=== PATIENT | male | born 2005 | race Caucasian/White ===

== ENCOUNTER 2023-02-14 00:10 | Emergency (ER) | payer MEDICAID, OTHER ==
[~2023-02-14] VITALS: Ht 182 cm; Wt 90.7 kg
[2023-02-14 00:12] VITALS: BP 109/73
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
[2023-02-14] MEDS ORDERED: TETANUS,DIPTH,PERTUSS P/F (BOOSTRIX) 0.5 ML VIAL IM ONE (00:30)
[2023-02-14] MEDS ORDERED: RX-NAPROXEN (NAPROSYN) 250 MG TAB PPK#4 PO STA (00:51)
[2023-02-14] MEDS ORDERED: NAPR500T8 PO (00:57)
--- NOTE | 2023-02-14 06:53 | Diagnostic Imaging Report ---
TIBIA/FIBULA, LEFT, 2 VIEWS COMPARISON: Left knee radiographs performed concurrently. INDICATION: Left leg pain TECHNIQUE: Ap and lateral views of the tibia and fibula. FINDINGS: No fracture, focal osseous lesion or periosteal reaction. No radiopaque foreign body. Knee and ankle are normal in alignment. IMPRESSION: 1. No acute osseous abnormality. Dictated by: Dictated on workstation # [id number]
--- NOTE | 2023-02-14 06:57 | Diagnostic Imaging Report ---
KNEE, LEFT, 3 VIEWS COMPARISON: None available. INDICATION: Left knee pain TECHNIQUE: Non-weight bearing AP, oblique, and lateral views of the left knee. FINDINGS: No fracture or traumatic malalignment. The joint spaces are well maintained. Small knee joint effusion. No mineralized joint bodies. IMPRESSION: No acute fracture about the left knee. Dictated by: Dictated on workstation # [id number]
--- NOTE | 2023-02-14 07:03 | Diagnostic Imaging Report ---
FEMUR, LEFT, 2 VIEWS INDICATION: Left thigh pain COMPARISON: None available. TECHNIQUE: 2 views of left femur FINDINGS: No fracture or erosions within the left femur. No radiopaque foreign body or soft tissue gas. IMPRESSION: Negative left femur. Dictated by: Dictated on workstation # [id number]
== END 2023-02-14 01:13 | disposition home or self-care (01) ==
LOC: ER 00:12
DX: S80.02XA Contusion of left knee, initial encounter (principal); F17.210 Nicotine dependence, cigarettes, uncomplicated; F17.290 Nicotine dependence, other tobacco product, uncomplicated; Z23 Encounter for immunization; V18.4XXA Pedal cycle driver injured in noncollision transport accident in traffic accident, initial encounter; Y92.481 Parking lot as the place of occurrence of the external cause
CPT/HCPCS: 73552; 73562; 73590; 90715

== ENCOUNTER 2023-07-05 20:59 | Emergency (ER) | payer MEDICAID ==
[~2023-07-05] VITALS: Ht 183 cm; Wt 78.0 kg
[~2023-07-05 20:59] MED LIST: NAPR500T8 PO
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
--- NOTE | 2023-07-05 21:50 | Diagnostic Imaging Report ---
INDICATION: Headache and neck pain post injury, blurred vision TECHNIQUE: Multiple contiguous axial images were obtained through the brain and cervical spine without the use of intravenous contrast. Sagittal and coronal reformations through the cervical spine were then performed. Auto Exposure Controls were utilized during the CT exam to meet ALARA standards for radiation dose reduction. There is no previous study for comparison. CT head findings: There were no extra-axial fluid collections. No intracranial hemorrhage. No intracranial mass or mass effect. No midline shift. The ventricles are normal in size and position. There are no focal parenchymal abnormalities in the brain. Orbital contents appear unremarkable. Calvarial windows show no fracture. CT cervical spine findings: There is no evidence of cervical spine fracture. There is no subluxation or malalignment. IMPRESSION: Negative CT head. Negative CT cervical spine. Dictated by: Dictated on workstation # [id number]
--- NOTE | 2023-07-05 21:52 | Diagnostic Imaging Report ---
INDICATION: Injury to head and laceration to left eyebrow, blurred vision. TECHNIQUE: Multiple contiguous axial images were obtained through the facial bones without the use of intravenous contrast. Auto Exposure Controls were utilized during the CT exam to meet ALARA standards for radiation dose reduction. COMPARISON: There is no previous study for comparison. Orbital contents appear unremarkable. The sinuses are well-aerated throughout. There is no acute fracture. There are postoperative changes in the left side of the mandible. There are periodontal lucencies in the left mandibular teeth. There is no acute fracture. IMPRESSION: No acute abnormality. Postop changes in the left side of the mandible. Dictated by: Dictated on workstation # [id number]
[2023-07-05 22:10] LABS: CLARITY,URINE CLEAR; COLOR,URINE YELLOW
[2023-07-05 22:11] LABS: BACTERIA,URINE NEGATIVE /HPF; BILIRUBIN,URINE NEGATIVE (NEGATIVE); GLUCOSE, URINE (UA) NEGATIVE (NEGATIVE); KETONES,URINE NEGATIVE (NEGATIVE); LEUKOCYTE ESTERASE ,URINE NEGATIVE (NEGATIVE); NITRITE,URINE NEGATIVE (NEGATIVE); PROTEIN,URINE NEGATIVE (NEGATIVE)
[2023-07-05 22:19] VITALS: BP 126/69
[2023-07-05 22:20] LABS: AMPHETAMINE SCREEN, URINE POSITIVE (NEGATIVE); BARBITURATE SCREEN URINE NEGATIVE (NEGATIVE); CANNABINOID SCREEN, URINE NEGATIVE (NEGATIVE); COCAINE SCREEN URINE NEGATIVE (NEGATIVE); METHADONE STAT NEGATIVE (NEGATIVE); OPIATE SCREEN URINE NEGATIVE (NEGATIVE); OXYCODONE STAT NEGATIVE (NEGATIVE); PROPOXYPHENE STAT NEGATIVE (NEGATIVE); TRICYCLIC ANTIDEPRESSANTS SCRE NEGATIVE (NEGATIVE)
== END 2023-07-05 22:21 | disposition home or self-care (01) ==
LOC: EDUNIT# 20:59 → ER 21:02
DX: S09.90XA Unspecified injury of head, initial encounter (principal); S01.81XA Laceration without foreign body of other part of head, initial encounter; S01.112A Laceration without foreign body of left eyelid and periocular area, initial encounter; F15.90 Other stimulant use, unspecified, uncomplicated; F17.290 Nicotine dependence, other tobacco product, uncomplicated; F17.210 Nicotine dependence, cigarettes, uncomplicated; W22.8XXA Striking against or struck by other objects, initial encounter; Y93.01 Activity, walking, marching and hiking; Y92.512 Supermarket, store or market as the place of occurrence of the external cause
CPT/HCPCS: 70450; 70486; 72125; 80306; 81000

== ENCOUNTER 2023-08-01 11:30 | Emergency (ER) | payer MEDICAID ==
--- NOTE | 2023-08-01 11:50 | ED Cough/URI ---
General Chief Complaint: Cough/Cold/Flu Symptoms Stated Complaint: COUGH/FEVER/CONGESTION Source: patient Exam Limitations: no limitations History of Present Illness Date Seen by Provider: Aug 01, 2023 Time Seen by Provider: 11:49 Initial Comments Patient is a 18-year-old male who presents ED with flulike symptoms. Reports nasal congestion, cough and sore throat for the past 6 days. He does report a history of asthma. States he has some mild wheezing and shortness of breath. Does not have an inhaler at home. Reports diarrhea without vomiting. Denies of any known fever. Reports bodyaches chills and weakness. Has been taking cough medication without much improvement. No known exposure to COVID. Patient also wants to be checked for sexual transmitted infections. States his fiance tested positive for trichomonas today. Patient denies of any penile discharge, penile pain, penile lesions, scrotum pain, scrotum swelling, penile discharge, pain with urination, frequent urination. History of syphilis 6 years ago. Patient was treated. Allergies and Home Medications Allergies Coded Allergies: No Known Drug Allergies (Unverified , 02/14/23) Patient Home Medication List Home Medication List Reviewed: Yes Albuterol Sulfate (Ventolin Hfa) 1 Puff Puff, 2 PUFF INH Q4H Prescribed by: DEYA OROZCO on 08/01/23 1235 Metronidazole (Metronidazole) 500 Mg Tablet, 500 MG PO BID Prescribed by: DEYA OROZCO on 08/01/23 1210 Naproxen (Naproxen) 500 Mg Tablet.dr, 500 MG PO BID Prescribed by: KAREN HOFFMANN on 02/14/23 0057 Review of Systems Review of Systems Constitutional: chills; No diaphoresis, No fever; malaise, weakness EENTM: throat pain; No ear pain, No blurred vision, No double vision, No mouth pain, No mouth swelling Respiratory: cough, short of breath, wheezing Gastrointestinal: No abdominal pain; diarrhea; No nausea, No vomiting Genitourinary: No decreased output, No discharge, No dysuria, No frequency, No hematuria Musculoskeletal: No back pain, No joint pain Skin: No change in color, No change in hair/nails All Other Systems Reviewed Negative Unless Noted: Yes Past Bwjmsxg-Hdpvzq-Wohymk Hx Immunizations Up To Date Tetanus Booster (TDap): Unknown Past Medical History Surgeries: Yes (JAW FRACTURE) Respiratory: No Cardiac: No Neurological: No Genitourinary: No Gastrointestinal: No Musculoskeletal: No Endocrine: No HEENT: Yes (JAW FRACTURE ) Cancer: No Psychosocial: Yes (POLYSUBSTANCE ABUSE) Integumentary: No Blood Disorders: No Family Medical History SOCIAL HISTORY: -SMOKES AND VAPES NICOTINE AND HOOKAH -ETOH--OCCASIONAL USE -DRUGS--METHAMPHETAMINES/AMPHETAMINES, OPIATES, THC Physical Exam Vital Signs - First Documented 08/01/23 12:49 Temp 36.6 Pulse 98 Resp 18 B/P (MAP) 125/98 Pulse Ox 98 O2 Delivery Room Air Capillary Refill : Height: '" Weight: lbs. oz. kg; 23.00 BMI Method: General Appearance: WD/WN, no apparent distress Eyes: Bilateral Eye Normal Inspection, Bilateral Eye PERRL, Bilateral Eye EOMI HEENT: PERRL/EOMI, normal ENT inspection, TMs normal, pharynx normal Neck: non-tender, full range of motion, supple Respiratory: chest non-tender, lungs clear, normal breath sounds, no respiratory distress, no accessory muscle use Cardiovascular: regular rate, rhythm, no edema, no gallop, no JVD Gastrointestinal: normal bowel sounds, non tender, soft, no organomegaly Extremities: normal range of motion, non-tender, normal inspection, no pedal edema 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, no motor/sensory deficits, alert, normal mood/affect, oriented x 3 Skin: normal color, warm/dry Progress/Results/Core Measures Suspected Sepsis SIRS Temperature: Pulse: Respiratory Rate: Blood Pressure / Mean: Results/Orders Lab Results Laboratory Tests Test 08/01/23 11:35 08/01/23 12:01 08/01/23 12:07 Range/Units Influenza Type A (RT-PCR) Not Detected Not Detecte Influenza Type B (RT-PCR) Not Detected Not Detecte SARS-CoV-2 RNA (RT-PCR) Not Detected Not Detecte Urine Color YELLOW Urine Clarity CLEAR Urine pH 8.5 5-9 Urine Specific [place] 1.015 L 1.016-1.022 Urine Protein NEGATIVE NEGATIVE Urine Glucose (UA) TRACE H NEGATIVE Urine Ketones NEGATIVE NEGATIVE Urine Nitrite NEGATIVE NEGATIVE Urine Bilirubin NEGATIVE NEGATIVE Urine Urobilinogen 0.2 < = 1.0 MG/DL Urine Leukocyte Esterase NEGATIVE NEGATIVE Urine RBC (Auto) TRACE H NEGATIVE Urine RBC 0-2 /HPF Urine WBC NONE /HPF Urine Crystals NONE /LPF Urine Bacteria NEGATIVE /HPF Urine Casts NONE /LPF Urine Mucus SMALL H /LPF Urine Other FEW SPERM H /HPF Urine Culture Indicated NO My Orders Orders - LUCILLE VAZ Covid 19 Inhouse Test (08/01/23 11:32) Influenza A And B By Pcr (08/01/23 11:32) Ua Culture If Indicated (08/01/23 11:40) Neis Félix Dna Urine Test (08/01/23 11:40) Chlamydia Trachomatis Urine (08/01/23 11:40) Syphilis Antibody Screen (08/01/23 12:01) Vital Signs/I&O 08/01/23 12:49 Temp 36.6 Pulse 98 Resp 18 B/P (MAP) 125/98 Pulse Ox 98 O2 Delivery Room Air Capillary Refill : Departure Communication (PCP) Patient with URI symptoms. Differential diagnosis viral syndrome, sinusitis, strep. On exam there is no evidence of erythema swelling or exudate to the oropharynx suggesting strep. No cervical adenopathy. Bilateral TMs clear. Lung sounds clear bilateral. No wheezing rhonchi. Vital signs stable. Does have a history of asthma but does not appear to be having any difficulty breathing or show signs of asthma exacerbations. Did obtain COVID influenza which returned back negative. No frontal maxillary sinus tenderness suggesting sinusitis. Does have some nasal congestion. Suggest that this is likely more viral. Has been taking cough syrup at home which I recommend continue. Alternate Tylenol ibuprofen. Patient is requesting inhaler as needed which I did prescribe. Patient did mention he is concern for STDs. States his fiance tested positive for trichomonas this morning. He would like to be checked for STDs with no current complaints. History of syphilis 6 years ago. Denies any rash, penile lesions, penile discharge. Cultures currently pending. Urinalysis without strong evidence of infection. Due to his fiance tested positive for trichomonas we will treat prophylactically with Flagyl. Was not treated prophylactically for gonorrhea or chlamydia or syphilis at this time. We will treat once cultures return. Recommend no sexual intercourse until results. Make sure to finish antibiotics before having sexual intercourse with your fianc. If any worsening symptoms such as difficulty breathing, shortness of breath to return back to ED. Impression Primary Impression: Upper respiratory infection Disposition: HOME, SELF-CARE Condition: Stable Departure-Patient Inst. Decision time for Depature: 12:10 Referrals: [facility]/LILLIAN BURLESON,LOCAL PHYSICIAN (PCP) Primary Care Physician Patient Instructions: Viral Syndrome (DC) Scripts Albuterol Sulfate (VENTOLIN HFA) 1 Puff Puff 2 PUFF INH Q4H, #1 EA 1 PUFF = 90 MCG Prov: LUCILLE VAZ 08/01/23 Metronidazole (Metronidazole) 500 Mg Tablet 500 MG PO BID for 7 Days, #14 TAB Prov: LUCILLE VAZ 08/01/23 LUCILLE VAZ Aug 01, 2023 11:50
[2023-08-01] MEDS ORDERED: METR-145 PO (12:10)
[2023-08-01 12:30] LABS: CLARITY,URINE CLEAR; COLOR,URINE YELLOW; PH,URINE 8.5 (5-9)
[2023-08-01 12:31] LABS: BACTERIA,URINE NEGATIVE /HPF; BILIRUBIN,URINE NEGATIVE (NEGATIVE); GLUCOSE, URINE (UA) TRACE (NEGATIVE); KETONES,URINE NEGATIVE (NEGATIVE); LEUKOCYTE ESTERASE ,URINE NEGATIVE (NEGATIVE); NITRITE,URINE NEGATIVE (NEGATIVE); PROTEIN,URINE NEGATIVE (NEGATIVE); RBC,URINE 0-2 /HPF; URINE OTHER FEW SPERM /HPF
[2023-08-01] MEDS ORDERED: RT-ALBUINH INH (12:35)
[2023-08-01 12:49] VITALS: BP 125/98
== END 2023-08-01 12:49 | disposition home or self-care (01) ==
LOC: EDUNIT# 11:30 → ER 11:33
DX: J06.9 Acute upper respiratory infection, unspecified (principal); F17.290 Nicotine dependence, other tobacco product, uncomplicated
CPT/HCPCS: 36415; 81000; 86592; 86780; 87491; 87591; 87636; 99283